=== PATIENT | female | born 1995 | race Caucasian/White ===

== ENCOUNTER 2016-11-20 10:39 | Emergency (ER) | payer SELFPAY ==
[~2016-11-20] VITALS: Ht 167.6 cm; Wt 55.0 kg
[~2016-11-20 10:39] MED LIST: AMOXICILLIN500 MG PO; BREVICON PO; CEPHALEXIN500 MG PO; CIPROFLOXACN500 MG PO; NAPROSYN500 MG PO; SEPTRA DS1 TAB PO; ZOFRAN ODT4 MG PO
[2016-11-20] MEDS ORDERED: AMOXICILLIN500 M2 PO (11:02)
[2016-11-20 11:20] VITALS: BP 119/59
== END 2016-11-20 11:20 | disposition home or self-care (01) | DRG 153 ==
LOC: ED 10:39
DX: J03.90 Acute tonsillitis, unspecified (principal)

== ENCOUNTER 2017-03-06 05:26 | Emergency (ER) | payer SELFPAY ==
[~2017-03-06] VITALS: Ht 167.6 cm; Wt 54.0 kg
[~2017-03-06 05:26] MED LIST changes: +AMOXICILLIN500 M2 PO
[2017-03-06] MEDS ORDERED: AMOXICILLIN500 MG PO (05:47)
[2017-03-06 08:06] VITALS: BP 116/68
== END 2017-03-06 08:06 | disposition home or self-care (01) | DRG 607 ==
LOC: ED 05:26
DX: L50.8 Other urticaria (principal)

== ENCOUNTER 2017-05-04 16:27 | Emergency (ER) | payer SELFPAY ==
[~2017-05-04] VITALS: Ht 167.6 cm; Wt 20.0 kg
[2017-05-04] MEDS ORDERED: CIPROFLOXACN750 MG PO (16:51)
[2017-05-04] MEDS ORDERED: MOTRIN800 MG PO (16:51)
[2017-05-04 17:40] VITALS: BP 112/62
== END 2017-05-04 17:40 | disposition home or self-care (01) | DRG 605 ==
LOC: ED 16:27
DX: S91.131A Puncture wound without foreign body of right great toe without damage to nail, initial encounter (principal); W26.8XXA Contact with other sharp object(s), not elsewhere classified, initial encounter; Y93.02 Activity, running; Y92.009 Unspecified place in unspecified non-institutional (private) residence as the place of occurrence of the external cause

== ENCOUNTER 2017-06-24 23:26 | Emergency (ER) | payer SELFPAY ==
[~2017-06-24] VITALS: Ht 167.6 cm; Wt 58.0 kg
[~2017-06-24 23:26] MED LIST changes: +CIPROFLOXACN750 MG PO; +MOTRIN800 MG PO
[2017-06-25 00:22] LABS: INFLUENZA A NONE DETECTED (NONE DETECT); INFLUENZA B NONE DETECTED (NONE DETECT)
[2017-06-25] MEDS ORDERED: ZPAK PO (00:35)
[2017-06-25 00:45] VITALS: BP 116/76
== END 2017-06-25 00:50 | disposition home or self-care (01) | DRG 153 ==
LOC: ED 23:26
PROVIDERS: Family Medicine
DX: J06.9 Acute upper respiratory infection, unspecified (principal); R04.2 Hemoptysis; R09.81 Nasal congestion

== ENCOUNTER 2018-05-29 10:00 | Emergency (ER) | payer SELFPAY ==
[~2018-05-29] VITALS: Ht 167.6 cm; Wt 56.8 kg
[~2018-05-29 10:00] MED LIST changes: +ZPAK PO
[2018-05-29 10:45] VITALS: BP 105/63
== END 2018-05-29 10:45 | disposition home or self-care (01) | DRG 156 ==
LOC: ED 10:00
PROC: 3E1B78Z Irrigation of Ear using Irrigating Substance, Via Natural or Artificial Opening (ICD-10-PCS; principal; 2018-05-29)
PROC: 3E1B78Z Irrigation of Ear using Irrigating Substance, Via Natural or Artificial Opening (ICD-10-PCS; 2018-05-29)
DX: H61.23 Impacted cerumen, bilateral (principal)

== ENCOUNTER 2019-05-18 08:22 | Emergency (ER) | payer SELFPAY ==
[~2019-05-18] VITALS: Ht 167.6 cm; Wt 60.0 kg
[2019-05-18] MEDS ORDERED: TAM75CAP PO (08:36)
[2019-05-18 08:50] VITALS: BP 133/72
== END 2019-05-18 08:54 | disposition home or self-care (01) | DRG 153 ==
LOC: ED 08:22
DX: J11.1 Influenza due to unidentified influenza virus with other respiratory manifestations (principal)

== ENCOUNTER 2022-05-12 06:02 | Emergency (ER) | payer SELFPAY ==
[~2022-05-12] VITALS: Ht 167.6 cm; Wt 54.0 kg
[~2022-05-12 06:02] MED LIST changes: +TAM75CAP PO
[2022-05-12 06:31] LABS: HEMATOCRIT 37.2 % (37.0-47.0); HEMOGLOBIN 12.5 g/dl (12.0-16.0); IMMATURE GRANULOCYTES 0.1 % (0.0-5.0); MEAN CELL VOLUME 82.1 fL CALC (80.0-100.0); MEAN CORPUSCULAR HGB 27.6 pG CALC (26.0-32.0); MEAN CORPUSCULAR HGB CONC 33.6 g/dL CAL (32.0-36.0); NEUT# 5.66 thou/uL (2.00-7.15); RED BLOOD COUNT 4.53 mill/uL (4.20-5.60); RED CELL DISTRI WIDTH 14.5 % (11.5-15.5)
[2022-05-12 06:45] LABS: ALBUMIN 5.2 g/dL (3.2-5.0); ALKALINE PHOSPHATASE 46 u/l (38-126); AMYLASE 88 u/l (30-110); BILIRUBIN, TOTAL 0.6 mg/dL (0.0-1.4); BUN 9 mg/dL (7-17); BUN/CREATININE RATIO 15 (12-20 (CALC)); CHLORIDE 108 mmol/l (95-108); CREATININE 0.6 mg/dL (0.5-1.0); GFR FOR AFR.AMER. > 60 ML/MIN (>=60 (CALC)); GFR OTHER RACES > 60 ML/MIN (>=60 (CALC)); LIPASE 66 u/l (23-300); POTASSIUM 3.6 mmol/l (3.5-5.1); SODIUM 143 mmol/l (137-146); TOTAL PROTEIN 8.5 g/dL (6.3-8.2)
[2022-05-12 06:53] LABS: ANION GAP 18 (6-22 (CALC)); CARBON DIOXIDE 21 mmol/l (22-30); SGOT/AST 27 u/l (14-36)
[2022-05-12 08:41] LABS: URINE BILIRUBIN - DIPSTICK NEGATIVE (NEGATIVE); URINE BLOOD DIPSTICK NEGATIVE (NEGATIVE); URINE COLOR YELLOW; URINE GLUCOSE - DIPSTICK NEGATIVE (NEGATIVE); URINE KETONE >=80 mg/dL (NEGATIVE); URINE LEUK ESTERASE NEGATIVE (NEGATIVE); URINE PROTEIN - DIPSTICK NEGATIVE (NEG-TRACE); URINE SPECIFIC GRAVITY 1.025; URINE UROBILINOGEN - DIPSTICK 0.2 E.U./dL (0.2)
[2022-05-12 08:43] LABS: URINE NITRITE - DIPSTICK POSITIVE (Negative)
[2022-05-12 08:48] LABS: URINE BACTERIA MANY hpf; URINE RBC 0-2 RBC/hpf (0-5); URINE SQUAMOUS EPITHELIAL CELL FEW EPI/hpf (0-FEW)
[2022-05-12 09:43] VITALS: BP 121/72
[2022-05-12] MEDS ORDERED: ZOFRAN4 MG/TAB PO (11:00)
[2022-05-12] MEDS ORDERED: NITROFURANTN100 M2 PO (11:00)
== END 2022-05-12 11:19 | disposition home or self-care (01) | DRG 392 ==
LOC: ED 06:02
PROVIDERS: Emergency Medicine
DX: R10.9 Unspecified abdominal pain (principal); N39.0 Urinary tract infection, site not specified; R11.2 Nausea with vomiting, unspecified; N83.201 Unspecified ovarian cyst, right side
CPT/HCPCS: Q9967; S0164

== ENCOUNTER 2022-05-19 01:28 | Emergency (ER) | payer SELFPAY ==
[~2022-05-19] VITALS: Ht 167.6 cm; Wt 54.0 kg
[~2022-05-19 01:28] MED LIST changes: +NITROFURANTN100 M2 PO; +ZOFRAN4 MG/TAB PO
[2022-05-19 01:35] VITALS: BP 121/74
[2022-05-19 01:45] VITALS: BP 116/77
[2022-05-19 01:55] LABS: HEMATOCRIT 38.6 % (37.0-47.0); HEMOGLOBIN 12.1 g/dl (12.0-16.0); MEAN CELL VOLUME 86.7 fL CALC (80.0-100.0); MEAN CORPUSCULAR HGB 27.2 pG CALC (26.0-32.0); MEAN CORPUSCULAR HGB CONC 31.3 g/dL CAL (32.0-36.0); NEUT# 1.95 thou/uL (2.00-7.15); RED BLOOD COUNT 4.45 mill/uL (4.20-5.60); RED CELL DISTRI WIDTH 14.5 % (11.5-15.5)
[2022-05-19 02:09] LABS: ALBUMIN 4.5 g/dL (3.2-5.0); ALKALINE PHOSPHATASE 40 u/l (38-126); AMYLASE 95 u/l (30-110); BUN 6 mg/dL (7-17); BUN/CREATININE RATIO 10 (12-20 (CALC)); CHLORIDE 111 mmol/l (95-108); CREATININE 0.6 mg/dL (0.5-1.0); GFR FOR AFR.AMER. > 60 ML/MIN (>=60 (CALC)); GFR OTHER RACES > 60 ML/MIN (>=60 (CALC)); LIPASE 100 u/l (23-300); POTASSIUM 3.7 mmol/l (3.5-5.1); SGOT/AST 21 u/l (14-36); SODIUM 143 mmol/l (137-146); TOTAL PROTEIN 7.2 g/dL (6.3-8.2)
[2022-05-19 02:10] LABS: ANION GAP 10 (6-22 (CALC)); BILIRUBIN, TOTAL 0.1 mg/dL (0.0-1.4); CARBON DIOXIDE 26 mmol/l (22-30)
[2022-05-19 02:16] VITALS: BP 108/70
[2022-05-19 02:30] VITALS: BP 108/72
[2022-05-19 02:30] LABS: URINE BILIRUBIN - DIPSTICK NEGATIVE (NEGATIVE); URINE BLOOD DIPSTICK NEGATIVE (NEGATIVE); URINE COLOR YELLOW; URINE GLUCOSE - DIPSTICK NEGATIVE (NEGATIVE); URINE KETONE NEGATIVE (NEGATIVE); URINE PH 6.5 (4.5-8.0); URINE PROTEIN - DIPSTICK NEGATIVE (NEG-TRACE); URINE UROBILINOGEN - DIPSTICK 0.2 E.U./dL (0.2)
[2022-05-19 02:32] LABS: URINE LEUK ESTERASE MODERATE (NEGATIVE); URINE NITRITE - DIPSTICK NEGATIVE (Negative)
[2022-05-19 02:37] LABS: URINE BACTERIA MODERATE hpf; URINE SQUAMOUS EPITHELIAL CELL FEW EPI/hpf (0-FEW)
[2022-05-19 02:38] LABS: URINE MUCUS FEW hpf (NONE-FEW); URINE TRICHOMONAS MODERATE hpf
[2022-05-19 02:45] VITALS: BP 107/69
[2022-05-19] MEDS ORDERED: PROCHLORPER25 MG RE (02:54)
[2022-05-19] MEDS ORDERED: METRONIDAZOLE500 MG PO (02:54)
[2022-05-19] MEDS ORDERED: BACTRIM DS1 TAB PO (02:54)
[2022-05-19 03:00] VITALS: BP 108/69
--- NOTE | 2022-05-22 12:59 | NUR ---
Attempted to contact pt via phone x2 regarding urine culture results. Left voicemail.
== END 2022-05-19 03:10 | disposition home or self-care (01) | DRG 392 ==
LOC: ED 01:28
PROVIDERS: Family Medicine
DX: K52.9 Noninfective gastroenteritis and colitis, unspecified (principal); A59.00 Urogenital trichomoniasis, unspecified
CPT/HCPCS: S0164

== ENCOUNTER 2022-06-19 06:24 | Observation (INO) | payer SELFPAY ==
[~2022-06-19] VITALS: Ht 167.6 cm; Wt 48.9 kg
[2022-06-19] VITALS (17 sets, daily range): BP systolic 91–121; BP diastolic 48–86
[~2022-06-19 06:24] MED LIST changes: +BACTRIM DS1 TAB PO; +METRONIDAZOLE500 MG PO; +PROCHLORPER25 MG RE
[2022-06-19 07:09] LABS: BASO% 0.3 % (0-3); EOS% 0.7 % (0-8); HEMATOCRIT 39.7 % (37.0-47.0); HEMOGLOBIN 13.1 g/dl (12.0-16.0); IMMATURE GRANULOCYTES 0.1 % (0.0-5.0); LYMPH% 25.1 % (15-41); MEAN CELL VOLUME 83.1 fL CALC (80.0-100.0); MEAN CORPUSCULAR HGB 27.4 pG CALC (26.0-32.0); MONO% 3.9 % (2-13); NEUT# 6.59 thou/uL (2.00-7.15); NEUT% 69.9 % (42-76); RED BLOOD COUNT 4.78 mill/uL (4.20-5.60); RED CELL DISTRI WIDTH 13.5 % (11.5-15.5)
[2022-06-19 07:20] LABS: ALBUMIN 5.1 g/dL (3.2-5.0); ALKALINE PHOSPHATASE 45 u/l (38-126); AMYLASE 75 u/l (30-110); BUN 9 mg/dL (7-17); BUN/CREATININE RATIO 16 (12-20 (CALC)); CHLORIDE 108 mmol/l (95-108); CREATININE 0.6 mg/dL (0.5-1.0); GFR FOR AFR.AMER. > 60 ML/MIN (>=60 (CALC)); GFR OTHER RACES > 60 ML/MIN (>=60 (CALC)); LIPASE 57 u/l (23-300); POTASSIUM 3.4 mmol/l (3.5-5.1); SGOT/AST 30 u/l (14-36); SODIUM 141 mmol/l (137-146); TOTAL PROTEIN 8.3 g/dL (6.3-8.2)
[2022-06-19 07:25] LABS: ANION GAP 16 (6-22 (CALC)); BILIRUBIN, TOTAL 0.5 mg/dL (0.0-1.4); CARBON DIOXIDE 20 mmol/l (22-30)
[2022-06-19 16:28] LABS: URINE BILIRUBIN - DIPSTICK NEGATIVE (NEGATIVE); URINE BLOOD DIPSTICK NEGATIVE (NEGATIVE); URINE COLOR YELLOW; URINE GLUCOSE - DIPSTICK NEGATIVE (NEGATIVE); URINE KETONE 40 mg/dL (NEGATIVE); URINE LEUK ESTERASE NEGATIVE (NEGATIVE); URINE PH 7.5 (4.5-8.0); URINE PROTEIN - DIPSTICK NEGATIVE (NEG-TRACE); URINE SPECIFIC GRAVITY 1.025; URINE UROBILINOGEN - DIPSTICK 0.2 E.U./dL (0.2)
[2022-06-19 16:29] LABS: URINE NITRITE - DIPSTICK NEGATIVE (Negative)
[2022-06-20 04:25] VITALS: BP 113/80
[2022-06-20 06:48] LABS: ALBUMIN 4.5 g/dL (3.2-5.0); ALKALINE PHOSPHATASE 35 u/l (38-126); ANION GAP 13 (6-22 (CALC)); BILIRUBIN, TOTAL 0.5 mg/dL (0.0-1.4); BUN 6 mg/dL (7-17); BUN/CREATININE RATIO 12 (12-20 (CALC)); CARBON DIOXIDE 20 mmol/l (22-30); CHLORIDE 108 mmol/l (95-108); CREATININE 0.5 mg/dL (0.5-1.0); GFR FOR AFR.AMER. > 60 ML/MIN (>=60 (CALC)); GFR OTHER RACES > 60 ML/MIN (>=60 (CALC)); POTASSIUM 4.1 mmol/l (3.5-5.1); SGOT/AST 23 u/l (14-36); SODIUM 137 mmol/l (137-146); TOTAL PROTEIN 6.8 g/dL (6.3-8.2)
[2022-06-20 06:50] VITALS: BP 118/66
[2022-06-21] MEDS ORDERED: ONDANSETRON4 MG PO (07:01)
== END 2022-06-20 12:29 | disposition home or self-care (01) | DRG 392 ==
LOC: ED 06:24 → ED-I 11:43 → ED 11:52 → MS2 11:53
PROVIDERS: Emergency Medicine; ADMIT Internal Medicine; ATTEND Internal Medicine
DX: R11.2 Nausea with vomiting, unspecified (principal); R10.10 Upper abdominal pain, unspecified; E86.0 Dehydration; K59.00 Constipation, unspecified; Z20.822 Contact with and (suspected) exposure to COVID-19
CPT/HCPCS: G0378; Q9967

== ENCOUNTER 2022-06-21 03:01 | Emergency (ER) | payer SELFPAY ==
[2022-06-21] VITALS (16 sets, daily range): BP systolic 93–160; BP diastolic 60–101
[~2022-06-21] VITALS: Ht 167.6 cm; Wt 52.5 kg
[2022-06-21 03:37] LABS: BASO% 0.7 % (0-3); EOS% 0.2 % (0-8); HEMATOCRIT 40.4 % (37.0-47.0); HEMOGLOBIN 13.3 g/dl (12.0-16.0); IMMATURE GRANULOCYTES 0.5 % (0.0-5.0); LYMPH% 51.2 % (15-41); MEAN CELL VOLUME 82.3 fL CALC (80.0-100.0); MEAN CORPUSCULAR HGB 27.1 pG CALC (26.0-32.0); MEAN CORPUSCULAR HGB CONC 32.9 g/dL CAL (32.0-36.0); MONO% 7.1 % (2-13); NEUT# 3.23 thou/uL (2.00-7.15); NEUT% 40.3 % (42-76); RED BLOOD COUNT 4.91 mill/uL (4.20-5.60); RED CELL DISTRI WIDTH 13.6 % (11.5-15.5)
[2022-06-21 03:56] LABS: ALBUMIN 4.9 g/dL (3.2-5.0); ALKALINE PHOSPHATASE 43 u/l (38-126); AMYLASE 83 u/l (30-110); ANION GAP 17 (6-22 (CALC)); BUN 9 mg/dL (7-17); BUN/CREATININE RATIO 14 (12-20 (CALC)); CARBON DIOXIDE 19 mmol/l (22-30); CHLORIDE 109 mmol/l (95-108); CREATININE 0.6 mg/dL (0.5-1.0); GFR FOR AFR.AMER. > 60 ML/MIN (>=60 (CALC)); GFR OTHER RACES > 60 ML/MIN (>=60 (CALC)); LIPASE 137 u/l (23-300); POTASSIUM 3.3 mmol/l (3.5-5.1); SGOT/AST 32 u/l (14-36); SODIUM 142 mmol/l (137-146); TOTAL PROTEIN 7.8 g/dL (6.3-8.2)
[2022-06-21 04:02] LABS: BILIRUBIN, TOTAL 0.2 mg/dL (0.0-1.4)
[2022-06-21 06:44] LABS: URINE BILIRUBIN - DIPSTICK NEGATIVE (NEGATIVE); URINE BLOOD DIPSTICK NEGATIVE (NEGATIVE); URINE COLOR YELLOW; URINE GLUCOSE - DIPSTICK NEGATIVE (NEGATIVE); URINE KETONE NEGATIVE (NEGATIVE); URINE LEUK ESTERASE NEGATIVE (NEGATIVE); URINE PROTEIN - DIPSTICK NEGATIVE (NEG-TRACE); URINE SPECIFIC GRAVITY 1.015; URINE UROBILINOGEN - DIPSTICK 0.2 E.U./dL (0.2)
[2022-06-21 06:46] LABS: URINE NITRITE - DIPSTICK NEGATIVE (Negative)
[2022-06-21] MEDS ORDERED: ONDANSETRON4 MG PO (07:01)
== END 2022-06-21 07:15 | disposition home or self-care (01) | DRG 392 ==
LOC: ED 03:01
PROVIDERS: Emergency Medicine
DX: R11.10 Vomiting, unspecified (principal)
CPT/HCPCS: Q9967; S0164

== ENCOUNTER 2022-08-29 08:18 | Emergency (ER) | payer SELFPAY ==
[~2022-08-29] VITALS: Ht 167.6 cm; Wt 48.1 kg
[~2022-08-29 08:18] MED LIST changes: +ONDANSETRON4 MG PO
[2022-08-29 08:26] VITALS: BP 124/77
[2022-08-29] MEDS ORDERED: IBUPROFEN600 MG PO (09:52)
[2022-08-29] MEDS ORDERED: VOLTAREN1%GEL TOP (09:55)
[2022-08-29 10:06] VITALS: BP 124/77
== END 2022-08-29 10:23 | disposition home or self-care (01) | DRG 392 ==
LOC: ED 08:18
DX: R11.10 Vomiting, unspecified (principal); M79.672 Pain in left foot

== ENCOUNTER 2023-04-09 17:12 | Emergency (ER) | payer OTHER ==
[~2023-04-09] VITALS: Ht 167.6 cm; Wt 47.6 kg
[2023-04-09] VITALS (10 sets, daily range): BP systolic 96–129; BP diastolic 49–90
[~2023-04-09 17:12] MED LIST changes: +IBUPROFEN600 MG PO; +VOLTAREN1%GEL TOP
[2023-04-09 17:45] LABS: BASO% 0.9 % (0-3); EOS% 3.1 % (0-8); HEMATOCRIT 39.1 % (37.0-47.0); IMMATURE GRANULOCYTES 0.2 % (0.0-5.0); LYMPH% 42.6 % (15-41); MEAN CORPUSCULAR HGB 29.2 pG CALC (26.0-32.0); MEAN CORPUSCULAR HGB CONC 33.2 g/dL CAL (32.0-36.0); MONO% 7.3 % (2-13); NEUT# 2.08 thou/uL (2.00-7.15); NEUT% 45.9 % (42-76); RED BLOOD COUNT 4.45 mill/uL (4.20-5.60)
[2023-04-09 17:46] LABS: MEAN CELL VOLUME 87.9 fL CALC (80.0-100.0)
[2023-04-09 18:04] LABS: ALBUMIN 4.1 g/dL (3.2-5.0); ALKALINE PHOSPHATASE 40 u/l (38-126); BUN 10 mg/dL (7-17); BUN/CREATININE RATIO 18 (12-20 (CALC)); CHLORIDE 106 mmol/l (95-108); CREATININE 0.6 mg/dL (0.5-1.0); GFR FOR AFR.AMER. > 60 ML/MIN (>=60 (CALC)); GFR OTHER RACES > 60 ML/MIN (>=60 (CALC)); POTASSIUM 3.9 mmol/l (3.5-5.1); SGOT/AST 22 u/l (14-36); SODIUM 140 mmol/l (137-146); TOTAL PROTEIN 6.8 g/dL (6.3-8.2)
[2023-04-09 18:06] LABS: ANION GAP 13 (6-22 (CALC)); BILIRUBIN, TOTAL 0.4 mg/dL (0.02-1.3); CARBON DIOXIDE 25 mmol/l (22-30)
[2023-04-09] MEDS ORDERED: ZOFRAN4 MG/TAB PO (20:04)
== END 2023-04-09 20:22 | disposition home or self-care (01) | DRG 90 ==
LOC: ED 17:12
PROVIDERS: Family Medicine
DX: S06.0X0A Concussion without loss of consciousness, initial encounter (principal); V48.6XXA Car passenger injured in noncollision transport accident in traffic accident, initial encounter; Z72.0 Tobacco use

== ENCOUNTER 2023-06-21 21:03 | Emergency (ER) | payer SELFPAY ==
[~2023-06-21] VITALS: Ht 167.6 cm; Wt 50.0 kg
[2023-06-21 21:40] VITALS: BP 126/77
[2023-06-21 22:16] LABS: BASO% 0.2 % (0-3); HEMATOCRIT 44.5 % (37.0-47.0); HEMOGLOBIN 14.8 g/dl (12.0-16.0); IMMATURE GRANULOCYTES 0.1 % (0.0-5.0); LYMPH% 18.4 % (15-41); MEAN CELL VOLUME 86.4 fL CALC (80.0-100.0); MEAN CORPUSCULAR HGB 28.7 pG CALC (26.0-32.0); MEAN CORPUSCULAR HGB CONC 33.3 g/dL CAL (32.0-36.0); MONO% 4.2 % (2-13); NEUT# 9.88 thou/uL (2.00-7.15); NEUT% 76.1 % (42-76); RED BLOOD COUNT 5.15 mill/uL (4.20-5.60); RED CELL DISTRI WIDTH 12.6 % (11.5-15.5)
[2023-06-21 22:27] LABS: ALBUMIN 5.2 g/dL (3.2-5.0); ALKALINE PHOSPHATASE 59 u/l (38-126); ANION GAP 18 (6-22 (CALC)); BILIRUBIN, TOTAL 0.8 mg/dL (0.02-1.3); BUN 10 mg/dL (7-17); BUN/CREATININE RATIO 16 (12-20 (CALC)); CARBON DIOXIDE 21 mmol/l (22-30); CHLORIDE 107 mmol/l (95-108); CREATININE 0.6 mg/dL (0.5-1.0); GFR FOR AFR.AMER. > 60 ML/MIN (>=60 (CALC)); GFR OTHER RACES > 60 ML/MIN (>=60 (CALC)); POTASSIUM 3.4 mmol/l (3.5-5.1); SGOT/AST 33 u/l (14-36); SODIUM 142 mmol/l (137-146); TOTAL PROTEIN 8.2 g/dL (6.3-8.2)
[2023-06-22] MEDS ORDERED: PHENERGAN25 MG RE (02:00)
[2023-06-22 02:30] VITALS: BP 126/77
== END 2023-06-22 02:30 | disposition home or self-care (01) | DRG 392 ==
LOC: ED 21:03
PROVIDERS: Family Medicine
DX: K52.9 Noninfective gastroenteritis and colitis, unspecified (principal); Z20.822 Contact with and (suspected) exposure to COVID-19